=== PATIENT | female | born 1995 | race African-American/Black ===

== ENCOUNTER 2016-12-02 18:00 | Emergency (ER) | payer OTHER ==
[~2016-12-02] VITALS: Ht 160 cm; Wt 60.0 kg
[2016-12-02 18:14] VITALS: Ht 160 cm; Wt 60.0 kg
[2016-12-02] MEDS ORDERED: CLIN-73 PO (19:13)
[2016-12-02] MEDS ORDERED: IBUP-1542 PO (19:13)
[2016-12-02] MEDS ORDERED: HYDR-906 PO (19:14)
[2016-12-02 19:38] VITALS: BP 111/71; PULSE 82; RESP 18; TEMP 98.1
--- NOTE | 2016-12-02 21:23 | ERA ---
ER Documentation Chief Complaint Date/Time DATE: 12/02/16 Chief Complaint POSSIBLE INFECTION LT EAR PIERCING HPI The patient is a 21-year-old female, presenting with left ear redness for 1 week , after placing her E about 3 weeks ago. She took Keflex for 5 day without response, she was seen at urgent care today where she was prescribed Cipro. However she went to the ER for second opinion. She denies fever, chills, neck pain, chest pain, dyspnea. She does not smoke nor drink Past medical/surgical history: None ROS All systems reviewed and are negative except as per history of present illness. Medications Home Meds Active Scripts Hydrocodone/Acetaminophen ([place] 5-325 Tablet) 1 Each Tablet, 1 TAB PO Q6H Y for PAIN, #10 TAB Prov:RANDY RODRIGEZ MD 12/02/16 Ibuprofen* (Motrin*) 600 Mg Tab, 600 MG PO Q6, #20 TAB Prov:RANDY RODRIGEZ MD 12/02/16 Clindamycin Hcl* (Clindamycin Hcl*) 300 Mg Capsule, 300 MG PO QID for 10 Days, CAP Prov:RANDY RODRIGEZ MD 12/02/16 Allergies Allergies: Coded Allergies: No Known Allergy (Unverified , 12/02/16) PMhx/Soc History of Surgery: No Anesthesia Reaction: No Hx Neurological Disorder: No Hx Respiratory Disorders: No Hx Cardiac Disorders: No Hx Psychiatric Problems: No Hx Miscellaneous Medical Probl: No Hx Alcohol Use: No Hx Substance Use: No Hx Tobacco Use: No Smoking Status: Never smoker Physical Exam Vitals Vital Signs Date Time Temp Pulse Resp B/P Pulse Ox O2 Delivery O2 Flow Rate FiO2 12/02/16 19:38 98.1 82 18 111/71 98 Room Air 12/02/16 18:14 98.1 85 18 109/67 98 Physical Exam Const: No acute distress. Head: Atraumatic. Eyes: Normal Conjunctiva. ENT: Normal External Ears, Nose and Mouth.Left upper earlobe with multiple piercing with erythema with minimal discharge, no crepitus Neck: Full range of motion. No meningismus. Resp: Clear to auscultation bilaterally. Cardio: Regular rate and rhythm. Abd: Soft, non distended, normal bowel sounds, non tender. Skin: No petechiae or rashes. Back: No midline or flank tenderness. Ext: No cyanosis, or edema. Neur: Awake and alert. No focal deficit Psych: Normal Mood and Affect. Procedures/MDM MEDICAL MAKING DECISION: The patient is a 21-year-old female, presenting with acute left upper earlobe cellulitis, stable for outpatient follow-up. The differential diagnoses considered include but are not limited to cellulitis , abscess Departure Diagnosis: Primary Impression: Cellulitis Condition: Good Patient Instructions: Cellulitis Referrals: [facility] YOU HAVE RECEIVED A MEDICAL SCREENING EXAM AND THE RESULTS INDICATE THAT YOU DO NOT HAVE A CONDITION THAT REQUIRES URGENT TREATMENT IN THE EMERGENCY DEPARTMENT. FURTHER EVALUATION AND TREATMENT OF YOUR CONDITION CAN WAIT UNTIL YOU ARE SEEN IN YOUR DOCTORS OFFICE WITHIN THE NEXT 1-2 DAYS. IT IS YOUR RESPONSIBILITY TO MAKE AN APPOINTMENT FOR FOLOW-UP CARE. IF YOU HAVE A PRIMARY DOCTOR --you should call your primary doctor and schedule an appointment IF YOU DO NOT HAVE A PRIMARY DOCTOR YOU CAN CALL OUR PHYSICIAN REFERRAL HOTLINE AT IF YOU CAN NOT AFFORD TO SEE A PHYSICIAN YOU CAN CHOSE FROM THE FOLLOWING FORMERLY [facility], [facility] [address] [facility] [address] [facility] [facility] [address] [facility] [facility] [address] [facility]. [facility] [address] [facility]. [facility]. [address] Additional Instructions: Call your primary care doctor TOMORROW for an appointment during the next 2-3 days.See the doctor sooner or return here if your condition worsens before your appointment time.She was discharged with clindamycin, Jaya Sexton MICHAEL M MD Dec 02, 2016 21:23
== END 2016-12-02 19:38 | disposition home or self-care (01) ==
LOC: FTE 18:00
DX: H60.12 Cellulitis of left external ear (principal)
CPT/HCPCS: 99284

== ENCOUNTER 2016-12-20 18:03 | Emergency (ER) | payer OTHER ==
[~2016-12-20] VITALS: Ht 157.5 cm; Wt 59.0 kg
[~2016-12-20 18:03] MED LIST: CLIN-73 PO; HYDR-906 PO; IBUP-1542 PO
[2016-12-20 18:12] VITALS: Ht 157.5 cm; Wt 59.0 kg
[2016-12-20] MEDS ORDERED: HC30CR25 TOP (18:28)
--- NOTE | 2016-12-20 18:48 | ERA ---
ER Documentation Chief Complaint Date/Time DATE: 12/20/16 TIME: 18:40 Chief Complaint Complains of generalized rash to arms HPI Otherwise healthy 21-year-old female presenting with boyfriend with a chief complaint of rash 2 and half weeks on the hands and feet bilaterally. Patient has tried Benadryl without relief. No other medications. Has not been evaluated. no similar symptoms in the past. No sick contacts. Denies any fever, chills or recent illness. Patient has no other complaints and describes no other associated manifestations. Nursing notes have been reviewed and are consistent with history given. ROS All systems reviewed and are negative except as per history of present illness. Medications Home Meds Active Scripts Hydrocortisone* Topical (Hydrocortisone* Topical) 2.5%-28.3 Gm Cream..g., 1 APPLIC TOP BID, #1 TUB Prov:RANDY NEWELL PA-C 12/20/16 Hydrocodone/Acetaminophen ([place] 5-325 Tablet) 1 Each Tablet, 1 TAB PO Q6H Y for PAIN, #10 TAB Prov:RANDY RODRIGEZ MD 12/02/16 Ibuprofen* (Motrin*) 600 Mg Tab, 600 MG PO Q6, #20 TAB Prov:RANDY RODRIGEZ MD 12/02/16 Clindamycin Hcl* (Clindamycin Hcl*) 300 Mg Capsule, 300 MG PO QID for 10 Days, CAP Prov:RANDY RODRIGEZ MD 12/02/16 Allergies Allergies: Coded Allergies: No Known Allergy (Unverified , 12/02/16) PMhx/Soc History of Surgery: No Anesthesia Reaction: No Hx Neurological Disorder: No Hx Respiratory Disorders: No Hx Cardiac Disorders: No Hx Psychiatric Problems: No Hx Miscellaneous Medical Probl: No Hx Alcohol Use: No Hx Substance Use: No Hx Tobacco Use: No Smoking Status: Never smoker Physical Exam Vitals Vital Signs Date Time Temp Pulse Resp B/P Pulse Ox O2 Delivery O2 Flow Rate FiO2 12/20/16 18:12 98.4 77 20 111/70 97 Physical Exam Const: Well-appearing 21-year-old female no acute distress Head: Atraumatic Eyes: Normal Conjunctiva ENT: Normal External Ears, Nose and Mouth. Neck: Full range of motion..~ No meningismus. Resp: Clear to auscultation bilaterally Cardio: Regular rate and rhythm, no murmurs Abd: Soft, non tender, non distended. Normal bowel sounds Skin: Minimally raised, 0.5-2 mm papules on the wrists and ankles bilaterally. No lesions on the palms. No warmth. No induration. Back: No midline or flank tenderness Ext: No cyanosis, or edema Neur: Awake and alert. NV intact bilaterally. Psych: Normal Mood and Affect Procedures/MDM Well-appearing 21-year-old female with a chief complaint of rash as described in the history and physical examination. Patient's rash is most consistent with atopic dermatitis. No sick contacts, including boyfriend who sleeps in the same bed with her and is with her today.. I have little-no suspicion for pediculosis infection, EM, SJS, TEN, anaphylaxis or other life-threatening infections. Little suspicion for fungal or bacterial involvement. I have spoke with the patient regarding their condition and future management. They have verbally responded that they understand their status and treatment plan. The patients vitals are stable, and their current condition is appropriate for discharge. The patient will be given discharge instructions with return precautions. Departure Diagnosis: Primary Impression: Rash Additional Impression: Rash and other nonspecific skin eruption Condition: Stable Patient Instructions: Self-Care for Skin Rashes Additional Instructions: Follow up with your PCP within the next 1-3 days for a more thorough evaluation and a possible referral to a specialist. Return the the emergency department immediately if symptoms worsen or change. If you have any questions regarding medications, ask your pharmacist or us before you leave. If any adverse reactions occur while taking your medications, discontinue the treatment and return to the emergency department immediately. Take your medications as directed, and complete the entire course of treatment. RANDY NEWELL PA-C Dec 20, 2016 18:48
== END 2016-12-20 18:45 | disposition home or self-care (01) ==
LOC: FTE 18:03
DX: R21 Rash and other nonspecific skin eruption (principal)
CPT/HCPCS: 99283

== ENCOUNTER 2018-06-22 23:13 | Emergency (ER) | payer OTHER ==
[~2018-06-22] VITALS: Ht 160 cm; Wt 65.4 kg
[~2018-06-22 23:13] MED LIST changes: -CLIN-73 PO; +CLIN300C10 PO; +HC30CR25 TOP; +HYDR-4011 PO; -HYDR-906 PO
[2018-06-22 23:51] VITALS: Ht 160 cm; Wt 65.4 kg
[2018-06-23] MEDS ORDERED: morphine 4 MG/ML VIAL IV STA (02:22)
[2018-06-23] MEDS ORDERED: SOD CHLORIDE 0.9% 500 ML IV STA (02:22)
[2018-06-23] MEDS ORDERED: ONDANSETRON 4 MG INJ IV STA (02:22)
[2018-06-23] MEDS ORDERED: KETOROLAC 30 MG INJ IV STA (02:22)
--- NOTE | 2018-06-23 02:24 | ERD ---
ER Documentation Chief Complaint Chief Complaint HUANG 2 hours ago, was told to follow up with pcp for MRI HPI 22-year-old female, with history of migraines, presents the emergency department, complaining of 1 day with worsening of migraine that has been associated with nausea and vomiting x2 today. She denies fevers, no chills, no blurred vision, no distal weakness, numbness or tingling. The patient has been taking Percocet without improvement of the symptoms. ROS All systems reviewed and are negative except as per history of present illness. Medications Home Meds Active Scripts Metoclopramide* (Reglan*) 10 Mg Tablet, 10 MG PO Q6 PRN for NAUSEA AND/OR VOMITING, #10 TAB Prov:ANTONIO ALVAREZ MD 06/23/18 Sumatriptan Succinate* (Imitrex*) 25 Mg Tablet, 25 MG PO BID PRN for MIGRAINE HEADACHE, #10 TAB May repeat after 2 hours if needed; MAX 200 mg/24 hours Prov:ANTONIO ALVAREZ MD 06/23/18 Hydrocortisone* Topical (Hydrocortisone* Topical) 2.5%-28.3 Gm Cream..g., 1 APPLIC TOP BID, #1 TUB Prov:RANDY NEWELL PA-C 12/20/16 Hydrocodone/Acetaminophen ([place] 5-325 Tablet) 1 Each Tablet, 1 TAB PO Q6H PRN for PAIN, #10 TAB Prov:RANDY RODRIGEZ MD 12/02/16 Ibuprofen* (Motrin*) 600 Mg Tab, 600 MG PO Q6, #20 TAB Prov:RANDY RODRIGEZ MD 12/02/16 Clindamycin Hcl* (Clindamycin Hcl*) 300 Mg Capsule, 300 MG PO QID for 10 Days, CAP Prov:RANDY RODRIGEZ MD 12/02/16 Allergies Allergies: Coded Allergies: No Known Allergy (Unverified , 12/02/16) PMhx/Soc Medical and Surgical Hx: pt denies Medical Hx, pt denies Surgical Hx History of Surgery: No Anesthesia Reaction: No Hx Neurological Disorder: No Hx Respiratory Disorders: No Hx Cardiac Disorders: No Hx Psychiatric Problems: No Hx Miscellaneous Medical Probl: No Hx Alcohol Use: No Hx Substance Use: No Hx Tobacco Use: No Smoking Status: Never smoker FmHx Family History: No diabetes, No coronary disease Physical Exam Vitals Vital Signs Date Temp Pulse Resp B/P (MAP) Pulse Ox O2 O2 Flow FiO2 Time Delivery Rate 06/22/18 98.3 98 16 124/64 98 23:51 (84) Physical Exam Const: No acute distress Head: Atraumatic Eyes: Normal Conjunctiva ENT: Normal External Ears, Nose and Mouth. Neck: Full range of motion. No meningismus. Resp: Clear to auscultation bilaterally Cardio: Regular rate and rhythm, no murmurs Abd: Soft, non tender, non distended. Normal bowel sounds Skin: No petechiae or rashes Back: No midline or flank tenderness Ext: No cyanosis, or edema Neur: Awake and alert Psych: Normal Mood and Affect Results 24 hrs Laboratory Tests Test 06/23/18 02:32 POC Beta HCG, Qualitative NEGATIVE Current Medications Medications Dose Sig/Dena Start Time Status Last (Trade) Ordered Route PRN Stop Time Admin Dose Reason Admin Sodium 500 ml @ Q1H STAT 06/23/18 DC 06/23/18 Chloride 500 mls/hr IV 02:22 06/23/18 02:44 03:21 Ondansetron 4 mg ONCE STAT 06/23/18 DC 06/23/18 HCl (Zofran IV 02:22 06/23/18 02:44 Inj) 02:36 Morphine 2 mg ONCE STAT 06/23/18 DC 06/23/18 Sulfate IV 02:22 06/23/18 02:44 (morphine) 02:36 Ketorolac 30 mg ONCE STAT 06/23/18 DC 06/23/18 Tromethamine IV 02:22 06/23/18 02:44 (Toradol) 02:36 Procedures/MDM Vital signs stable, Physical exam unremarkable, neurovascular exam intact. Differential diagnosis include but not limited to: Classical migraine, sinusitis, visual corrective problems, side effects of medications, dehydration, electrolyte imbalance, endocrine/autoimmune medical condition, stress, anxiety, tension headache. Low suspicion for meningitis, RV BODY MECHANIC tumor, cerebrovascular event. Physical examination and clinical presentation consistent most likely with migraine headache. During the ED course the patient remained stable, no new complaints. The patient received treatment with IV medications and IV fluids presenting overall improvement of the symptoms. Results and clinical impression discussed with patient who agrees with management. The patient is stable to be treated outpatient and will be discharged home, some side effects of prescribed medications (headache, rash, nausea, vomiting, diarrhea, drowsiness, habituation, bleeding, hypertension, interactions with other medications) were reviewed. Follow up with the primary care provider in the next 48h has been recommended. If symptoms persist, worsen or new symptoms develop, then patient should return to the ED immediately. Instructions explained and given directly by me to the patient with acknowledgment and demonstrated understanding. Disclaimer: Inadvertent spelling and grammatical errors are likely due to EHR/dictation software use and do not reflect on the overall quality of patient care. Also, please note that the electronic time recorded on this note does not necessarily reflect the actual time of the patient encounter. Departure Diagnosis: Primary Impression: Migraine headache Condition: Stable Additional Instructions: Thank you very much for allowing us to participate in your care. Your health and safety is our top priority at [facility]. Call your primary care doctor TOMORROW for an appointment during the next 2-4 days and bring all the information and medications prescribed. Have prescriptions filled and follow precisely the directions on the label. If the symptoms get worse and your provider is unavailable, return to the Emergency Department immediately. ANTONIO ALVAREZ MD Jun 23, 2018 02:24
[2018-06-23] MEDS ORDERED: METO10TA92 PO (04:00)
[2018-06-23] MEDS ORDERED: SUMA25TA34 PO (04:00)
[2018-06-23 04:32] VITALS: BP 105/64; PULSE 73; RESP 18
== END 2018-06-23 04:44 | disposition home or self-care (01) ==
LOC: FTE 23:13
DX: G43.909 Migraine, unspecified, not intractable, without status migrainosus (principal)
CPT/HCPCS: 81025; 96361; 96374; 96375; J1885; J2270; J2405; J7040; Z7502

== ENCOUNTER 2018-06-25 19:57 | Emergency (ER) | payer OTHER ==
[~2018-06-25] VITALS: Ht 160 cm; Wt 64.8 kg
[~2018-06-25 19:57] MED LIST changes: +METO10TA92 PO; +SUMA25TA34 PO
[2018-06-25 20:02] VITALS: Ht 160 cm; Wt 64.8 kg
--- NOTE | 2018-06-26 01:41 | ERD ---
ER Documentation Chief Complaint Chief Complaint pt reports n/v, sensitivity to light and sound, hx migraines, here 3 days HPI 23-year-old female, with history of migraines, presents to the emergency department, complaining of migraine headache associated with nausea, vomiting and photophobia. The patient was seen here 3 days ago. ROS All systems reviewed and are negative except as per history of present illness. Medications Home Meds Active Scripts Metoclopramide* (Reglan*) 10 Mg Tablet, 10 MG PO Q6 PRN for NAUSEA AND/OR VOMITING, #10 TAB Prov:ANTONIO ALVAREZ MD 06/23/18 Sumatriptan Succinate* (Imitrex*) 25 Mg Tablet, 25 MG PO BID PRN for MIGRAINE HEADACHE, #10 TAB May repeat after 2 hours if needed; MAX 200 mg/24 hours Prov:ANTONIO ALVAREZ MD 06/23/18 Hydrocortisone* Topical (Hydrocortisone* Topical) 2.5%-28.3 Gm Cream..g., 1 A PPLIC TOP BID, #1 TUB Prov:RANDY NEWELL PA-C 12/20/16 Hydrocodone/Acetaminophen ([place] 5-325 Tablet) 1 Each Tablet, 1 TAB PO Q6H PRN for PAIN, #10 TAB Prov:RANDY RODRIGEZ MD 12/02/16 Ibuprofen* (Motrin*) 600 Mg Tab, 600 MG PO Q6, #20 TAB Prov:RANDY RODRIGEZ MD 12/02/16 Clindamycin Hcl* (Clindamycin Hcl*) 300 Mg Capsule, 300 MG PO QID for 10 Days, CAP Prov:RANDY RODRIGEZ MD 12/02/16 Allergies Allergies: Coded Allergies: No Known Allergy (Unverified , 12/02/16) PMhx/Soc History of Surgery: No Anesthesia Reaction: No Hx Neurological Disorder: No Hx Respiratory Disorders: No Hx Cardiac Disorders: No Hx Psychiatric Problems: No Hx Miscellaneous Medical Probl: No Hx Alcohol Use: No Hx Substance Use: No Hx Tobacco Use: No Physical Exam Vitals Vital Signs Date Temp Pulse Resp B/P (MAP) Pulse Ox O2 O2 Flow FiO2 Time Delivery Rate 06/25/18 97.8 76 16 132/73 98 20:02 (92) Physical Exam Const: No acute distress Head: Atraumatic Eyes: Normal Conjunctiva ENT: Normal External Ears, Nose and Mouth. Neck: Full range of motion. No meningismus. Resp: Clear to auscultation bilaterally Cardio: Regular rate and rhythm, no murmurs Abd: Soft, non tender, non distended. Normal bowel sounds Skin: No petechiae or rashes Back: No midline or flank tenderness Ext: No cyanosis, or edema Neur: Awake and alert Psych: Normal Mood and Affect Procedures/MDM Vital signs stable, Physical exam unremarkable, neurovascular exam intact. Differential diagnosis include but not limited to: Classical migraine, sinusitis, visual corrective problems, side effects of medications, dehydration, electrolyte imbalance, endocrine/autoimmune medical condition, stress, anxiety, tension headache. Low suspicion for meningitis, TURNING SANDER OPERATOR tumor, cerebrovascular event. Physical examination and clinical presentation consistent most likely with migraineheadache. During the ED course the patient remained stable, no new complaints. The patient received treatment with IV fluids and IV medications presenting overall improvement of the symptoms. Results and clinical impression discussed with patient who agrees with management. The patient is stable to be treated outpatient and will be discharged home, some side effects of prescribed medications (headache, rash, na usea, vomiting, diarrhea, drowsiness, habituation, bleeding, hypertension, interactions with other medications) were reviewed. Follow up with the primary care provider in the next 48h has been recommended. If symptoms persist, worsen or new symptoms develop, then patient should return to the ED immediately. Instructions explained and given directly by me to the patient with maged owledgment and demonstrated understanding. Disclaimer: Inadvertent spelling and grammatical errors are likely due to EHR/dictation software use and do not reflect on the overall quality of patient care. Also, please note that the electronic time recorded on this note does not necessarily reflect the actual time of the patient encounter. Departure Diagnosis: Primary Impression: Migraine headache Condition: Stable Additional Instructions: Thank you very much for allowing us to participate in your care. Your health and safety is our top priority at [facility]. Call your primary care doctor TOMORROW for an appointment during the next 2-4 days and bring all the information and medications prescribed. Have prescriptions filled and follow precisely the directions on the label. If the symptoms get worse and your provider is unavailable, return to the Emergency Department immediately. ANTONIO ALVAREZ MD Jun 26, 2018 01:41
[2018-06-26] MEDS ORDERED: KETOROLAC 30 MG INJ IV STA (02:08)
[2018-06-26] MEDS ORDERED: SOD CHLORIDE 0.9% 500 ML IV STA (02:08)
[2018-06-26] MEDS ORDERED: METOCLOPRAMIDE 10 MG INJ IV STA (02:08)
[2018-06-26] MEDS ORDERED: morphine 4 MG/ML VIAL IV STA (02:08)
[2018-06-26] MEDS ORDERED: ABCC1C PO (02:11)
[2018-06-26] MEDS ORDERED: ONDA4TAB8 PO (03:42)
[2018-06-26 03:43] VITALS: BP 85/82; PULSE 58; RESP 18
== END 2018-06-26 03:43 | disposition home or self-care (01) ==
LOC: FTE 19:57
DX: G43.909 Migraine, unspecified, not intractable, without status migrainosus (principal)
CPT/HCPCS: 81025; 96374; 96375; J1885; J2270; J2765; J7040; Z7502